=== PATIENT | male | born 1975 | race Caucasian/White ===

== ENCOUNTER → 2019-07-01 | Outpatient (CLI) | payer OTHER | END | disposition home or self-care (01) | LOC: RAD 15:40 | PROVIDERS: ATTEND Orthopaedic Surgery | DX: M25.462 Effusion, left knee (principal); M25.461 Effusion, right knee; M17.0 Bilateral primary osteoarthritis of knee | CPT/HCPCS: 73565 ==

== ENCOUNTER 2019-07-16 13:58 | Outpatient (CLI) | payer OTHER | END 2019-07-16 23:59 | disposition home or self-care (01) | LOC: RAD 13:58 | PROVIDERS: ATTEND Orthopaedic Surgery | DX: S83.242A Other tear of medial meniscus, current injury, left knee, initial encounter (principal); S83.282A Other tear of lateral meniscus, current injury, left knee, initial encounter; M25.462 Effusion, left knee; M71.22 Synovial cyst of popliteal space [Baker], left knee; M25.475 Effusion, left foot; M94.272 Chondromalacia, left ankle and joints of left foot; X58.XXXA Exposure to other specified factors, initial encounter; Y93.89 Activity, other specified; Y92.89 Other specified places as the place of occurrence of the external cause; Y99.8 Other external cause status ==

== ENCOUNTER 2019-08-22 14:25 | Outpatient (CLI) | payer OTHER | END 2019-08-22 23:59 | disposition home or self-care (01) | LOC: STAR 14:25 | PROVIDERS: ATTEND Orthopaedic Surgery | DX: Z11.59 Encounter for screening for other viral diseases (principal) | CPT/HCPCS: U0001-CS ==

== ENCOUNTER 2019-08-28 11:50 | Day surgery (SDC) | payer OTHER ==
[~2019-08-28] VITALS: Ht 188 cm; Wt 106.0 kg
[~2019-08-28 11:50] MED LIST: LIDOCAINE 1%, 20ML ONE; ROPIvacaine/PF 0.2% , 100 ML ONE; ROPIvacaine/PF 0.5%, 30 ML ONE
[2019-08-28] MEDS ORDERED: LIDOCAINE-MPF 1%, 2ML INFIL STA (12:15)
[2019-08-28] MEDS ORDERED: CHLORHEXIDINE 15 ML UDC MM ONE (12:15)
[2019-08-28] MEDS ORDERED: LACTATED RINGERS 1,000 ML IV SCH (12:15)
[2019-08-28] MEDS ORDERED: CHLORHEXIDINE 15 ML UDC ONE (12:22)
[2019-08-28] MEDS ORDERED: MIDAZOLAM 1 MG/ML, 2ML ONE (13:20)
[2019-08-28] MEDS ORDERED: FENTANYL PF 100 MCG/2ML ONE ×2 (13:20)
[2019-08-28] MEDS ORDERED: PROPOFOL 10 MG/ML, 20ML ONE (13:22)
[2019-08-28] MEDS ORDERED: CEFAZOLIN 1,000 MG ONE ×2 (13:58)
[2019-08-28] MEDS ORDERED: FENTANYL PF 100 MCG/2ML IV PRN (14:00)
[2019-08-28] MEDS ORDERED: HYDROmorphone 1 MG/ML, 1ML INJ IVPush PRN (14:00)
[2019-08-28] MEDS ORDERED: ONDANSETRON 2MG/ML, 2ML IVPush PRN (14:00)
[2019-08-28] MEDS ORDERED: MEPERIDINE/PF 25MG/0.5ML IVPush PRN (14:00)
[2019-08-28] MEDS ORDERED: ACETAMINOPHEN 325 MG TABLET PO PRN (14:00)
[2019-08-28] MEDS ORDERED: OXYcodone 5 MG/5 ML ORAL.SOL UDC PO PRN (14:00)
[2019-08-28] MEDS ORDERED: morphine SULFATE 10 MG/ML, 1ML IVPush PRN (14:00)
[2019-08-28] MEDS ORDERED: KETOROLAC 30 MG/1 ML ONE ×2 (14:06)
[2019-08-28] MEDS ORDERED: OXYcodone 5 MG/5 ML ORAL.SOL UDC ONE (15:00)
== END 2019-08-28 16:00 | disposition home or self-care (01) ==
LOC: OUT 11:50
PROVIDERS: ATTEND Orthopaedic Surgery
DX: S83.232A Complex tear of medial meniscus, current injury, left knee, initial encounter (principal); S83.282A Other tear of lateral meniscus, current injury, left knee, initial encounter; M22.42 Chondromalacia patellae, left knee; M67.52 Plica syndrome, left knee; M65.862 Other synovitis and tenosynovitis, left lower leg; Z98.890 Other specified postprocedural states; X58.XXXA Exposure to other specified factors, initial encounter; Y93.89 Activity, other specified; Y92.89 Other specified places as the place of occurrence of the external cause; Y99.8 Other external cause status
CPT/HCPCS: 29876; 29880; J0690; J1885; J2250; J2704; J2795; J3010; J7120